=== PATIENT | female | born 1930 | race Caucasian/White ===

== ENCOUNTER 2016-07-16 19:55 | Emergency (ER) | payer OTHER ==
[~2016-07-16] VITALS: Ht 152.4 cm; Wt 65.8 kg
[~2016-07-16 19:55] MED LIST: AZOR 10 MG-40 M1 TAB PO; Aspirin PO; BUDESONIDE EC3 MG PO; BUDESONIDE3 MG PO; CENTRUM SILVER1 EAC3 PO; CHOLESTYRAM4 GM/9 GM PO; COLACE100 M1 PO; DELTASONE20 MG PO; DICYCLOMINE HCL10 M1 PO; DORZOLAMIDE-TIM10 ML OPH; ENTOCORT EC3 MG PO; HARD NAILS2500 MCG PO; IMODIUM 2 MG. CA2 MG PO; LEVOTHYROXINE50 MCG PO; LOVASTATIN40 MG PO; METOPROLOL SUC100 M2 PO; NYSTATIN PO; NYSTATIN100000 UNI PO; PERCOCET 5-3251 EACH PO; QUESTRAN4 GM/9 GM PO; TRAVATAN Z5 ML OPH; TYLENOL TAB 32325 MG PO; VALTREX1000 MG PO; XALATAN 0.50 GTT/1 B OPH
--- NOTE | 2016-07-16 20:25 | ED GI/GU/ABDOMINAL COMPLAINT ---
History of Present Illness General Chief Complaint: General Adult Stated Complaint: PT HAS A PAIN IN THE BACK AND IN THE STOMACH Source: patient Exam Limitations: no limitations Vital Signs & Intake/Output Vital Signs & Intake/Output Vital Signs Date Time Temp Pulse Resp B/P Pulse O2 O2 Flow FiO2 Ox Delivery Rate 07/16 2004 97.7 52 18 182/77 96 Room Air Allergies Coded Allergies: MUKESH Inhibitors (Severe, COUGH 06/23/16) lovastatin (Severe, DIARRHEA 06/23/16) amlodipine (From NORM) (DIARRHEA 06/23/16) olmesartan (From NORM) (DIARRHEA 06/23/16) Reconcile Medications Biotin (Hard Nails) 2,500 MCG CAPSULE 2 CAP PO DAILY SUPPLEMENT (Reported) Diclofenac Sodium (Voltaren) 1 % GEL..GRAM. 1 GM TOP 4 TIMES/DAY PAIN apply to affected area(s) Dicyclomine HCl 10 MG CAPSULE 1 CAP PO TID ABD CRAMPS (Reported) Docusate Sodium (Colace) 100 MG CAPSULE 1 CAP PO DAILY STOOL SOFTENER ( Reported) Dorzolamide HCl/Timolol Maleat (Dorzolamide-Timolol Eye Drops) 10 ML DROPS 1 GTT OPH BID BOTH EYES - GLAUCOMA (Reported) Levothyroxine Sodium 50 MCG TABLET 1 TAB PO DAILY THYROID (Reported) Metoprolol Succinate 100 MG TAB.ER.24H 1 TAB PO DAILY HEART/BP (Reported) Multivit-Min/FA/Lycopen/Lutein (Centrum Silver Tablet) 1 EACH TABLET 1 TAB PO DAILY SUPPLEMENT (Reported) Nystatin 100,000 UNIT/1 ML ORAL.SUSP 5 ML PO 4 TIMES/DAY thrush Oxycodone HCl/Acetaminophen (Percocet 5-325 MG Tablet) 5 MG-325 MG TABLET 1 TAB PO Q4-6 PRN PAIN Oxycodone HCl/Acetaminophen (Percocet 5-325 MG Tablet) 1 EACH TABLET 1 TAB PO Q4P PRN pain Prednisone (Deltasone) 20 MG TABLET 1 TAB PO BID SHINGLES Travoprost (Travatan Z) 5 ML DROPS 1 GTT OPH QPM BOTH EYES- GLAUCOMA ( Reported) Valacyclovir HCl (Valtrex) 1,000 MG TABLET 1 TAB PO TID shingles Triage Note: RECEIVED 86 YO FEMALE WITH HX OF SHINGLES, C/O SEVERE PAIN FROM BACK TO STOMACH AREA. PT WAS HERE TWICE FOR SAME. PRESCRIBED GABAPENTIN BY PMD BUT MADE HER CONFUSED. PT REPORTS 04/07 PAIN Triage Nurses Notes Reviewed? yes ? N Is pt currently ? No Onset: Gradual Duration: 2 MONTHS Timing: single episode today Quality/Severity: moderate Location: LEFT FLANK Radiation: LEFT CHEST Activities at Onset: ZOSTER INFECTION HPI: This is an 86-year-old who presents to the ER for the chief complaints of persistent left flank pain after herpes zoster infection. According to the daughter they started her on Neurontin for pain and ended up in the ER with a medication reaction and confusion. At that time they took her off Neurontin. Since that time she's been using Tylenol but without any relief. According to the daughter she is requesting some pain medications. No fever or chills. The pain is exactly the same as she has experienced since her episodes of zoster infection. Past History Travel History Traveled to [place] past 21 day No Medical History Any Pertinent Medical History? 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 Hx Contributory? No Review of Systems Review of Systems Constitutional: Denies: chills, fever. EENTM: Reports: no symptoms. Respiratory: Denies: cough, short of breath, sputum production. Cardiovascular: Denies: chest pain, palpitations. GI: Denies: abdominal pain. Genitourinary: Reports: no symptoms. Musculoskeletal: Reports: back pain. Skin: Reports: rash (healed over rash). Neurological/Psychological: Reports: anxiety. Hematologic/Endocrine: Denies: bruising, bleeding, polyuria, other. Immunologic/Allergic: Denies: splenectomy. All Other Systems: Reviewed and Negative Physical Exam Physical Exam General Appearance: well developed/nourished, alert, awake, anxious Head: atraumatic, normal appearance Eyes: Bilateral: normal appearance, PERRL, EOMI. Ears, Nose, Throat, Mouth: hearing grossly normal, moist mucous membrane Neck: normal inspection, supple, full range of motion Respiratory: normal breath sounds, chest non-tender, no respiratory distress Cardiovascular: regular rate/rhythm Peripheral Pulses: 2+ radial (R), 2+ radial (L) Gastrointestinal: normal bowel sounds, soft, non-tender Back: HYPERPIGMENTATION OVER PREVIOUS ZOSTER RASH Extremities: normal range of motion, evidence of injury Neurologic/Psych: no motor/sensory deficits, awake, alert, oriented x 3 Skin: intact, normal color, warm/dry Diagram Body Front & Back 1) HYPERPIGMENTED RASH Core Measures ACS in differential dx? 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 Initial ED EKG: none Departure Departure Time of Disposition: 2038 Disposition: HOME OR SELF CARE Condition: Stable Clinical Impression Primary Impression: Neuropathic pain Referrals: LITLTE DHALIWAL,TONNY Monroy (PCP/Family) Additional Instructions: TAKE THE PERCOCET AND VOLTAREN CREAM DIAGNOSED AND FOLLOW UP WITH YOUR DOCTOR IN THE OFFICE FOR CONTINUED PAIN. RETURN TO E ER NEEDED. Departure Forms: Customer Survey General Discharge Information Prescriptions: Current Visit Scripts Oxycodone HCl/Acetaminophen (Percocet 5-325 MG Tablet) 1 TAB PO Q4-6 PRN PAIN #10 TAB Diclofenac Sodium (Voltaren) 1 GM TOP 4 TIMES/DAY #1 TUBE apply to affected area(s)
[2016-07-16] MEDS ORDERED: PERCOCET 5-3251 EACH PO (20:41)
[2016-07-16] MEDS ORDERED: VOLTAREN100 GM TOP (20:41)
[2016-07-16 20:56] VITALS: BP 181/70
== END 2016-07-16 21:15 ==
LOC: ERH 19:55
DX: G62.9 Polyneuropathy, unspecified (principal)

== ENCOUNTER 2016-07-31 19:29 | Emergency (ER) | payer OTHER ==
[~2016-07-31] VITALS: Ht 154.9 cm; Wt 69.9 kg
[~2016-07-31 19:29] MED LIST changes: +VOLTAREN100 GM TOP
[2016-07-31] MEDS ORDERED: ASPIRIN EC81 M1 PO (20:51)
[2016-07-31] MEDS ORDERED: LEVOTHYROXINE75 MCG PO (20:52)
[2016-07-31] MEDS ORDERED: METOPROLOL SUCC50 M2 PO (20:53)
[2016-07-31] MEDS ORDERED: VITAMIN D250000 UNIT PO (20:55)
[2016-07-31] MEDS ORDERED: HYDROXYZINE HCL25 M2 PO (20:56)
--- NOTE | 2016-07-31 21:16 | RADIOLOGY REPORT ---
EXAMINATION: XR ABDOMEN MULTIPLE VIEWS CLINICAL INDICATION: Pericolostomy pain COMPARISON: 11/27/2015 TECHNIQUE: AP supine and upright radiographs of the abdomen and pelvis. FINDINGS: Unremarkable bowel gas pattern. No evidence of obstruction. No free intraperitoneal air. IMPRESSION: Unremarkable examination.
[2016-07-31] MEDS ORDERED: PERCOCET 5-3251 EACH PO (21:34)
--- NOTE | 2016-07-31 21:35 | ED GENERAL ADULT ---
History of Present Illness General Chief Complaint: General Adult Stated Complaint: PT IN THE LEFT SIDE Source: patient, family, old records Exam Limitations: no limitations Vital Signs & Intake/Output Vital Signs & Intake/Output Vital Signs Date Time Temp Pulse Resp B/P Pulse O2 O2 Flow FiO2 Ox Delivery Rate 07/31 2145 97.0 64 20 178/70 98 Room Air 07/31 1938 97.2 60 18 182/75 98 Room Air ED Intake and Output 08/01 0000 07/31 1200 Intake Total Output Total Balance Patient 154 lb Weight Allergies Coded Allergies: MUKESH Inhibitors (Severe, COUGH 06/23/16) lovastatin (Severe, DIARRHEA 06/23/16) amlodipine (From NORM) (DIARRHEA 06/23/16) olmesartan (From NORM) (DIARRHEA 06/23/16) Reconcile Medications Aspirin (Ecotrin*) 81 MG TABLET.DR 1 TAB PO DAILY HEART/BLOOD (Reported) Biotin (Hard Nails) 2,500 MCG CAPSULE 2 CAP PO DAILY SUPPLEMENT (Reported) Diclofenac Sodium (Voltaren) 1 % GEL..GRAM. 1 GM TOP 4 TIMES/DAY PAIN apply to affected area(s) Docusate Sodium (Colace) 100 MG CAPSULE 1 CAP PO DAILY STOOL SOFTENER ( Reported) Dorzolamide HCl/Timolol Maleat (Dorzolamide-Timolol Eye Drops) 10 ML DROPS 1 GTT OPH BID BOTH EYES - GLAUCOMA (Reported) Ergocalciferol (Vitamin D2) (Vitamin D2) 50,000 UNIT CAPSULE 1 CAP PO QSUN SUPPLEMENT (Reported) Hydroxyzine HCl 25 MG TABLET 1 TAB PO PRN ITCHING (Reported) Levothyroxine Sodium 75 MCG TABLET 1 TAB PO DAILY THYROID (Reported) Metoprolol Succinate 50 MG TAB.ER.24H 150 MG PO DAILY HEART/BP (Reported) Multivit-Min/FA/Lycopen/Lutein (Centrum Silver Tablet) 1 EACH TABLET 1 TAB PO DAILY SUPPLEMENT (Reported) Oxycodone HCl/Acetaminophen (Percocet 5-325 MG Tablet) 5 MG-325 MG TABLET 0.5- 1 TAB PO Q6P PRN severe pain Travoprost (Travatan Z) 5 ML DROPS 1 GTT OPH QPM BOTH EYES- GLAUCOMA ( Reported) Core Measure Meds Pre-Hospital aspirin Triage Note: 86 YEAR OLD FEMALE TO TRIAGE , STATES THAT SHE HAD SHINGLES ON 06/17/16, WAS SEEN AGAIN ON 06/21 DUE TO PAIN CONTINUES, PT NOTED WITH SCARS TO BACK AND 2 AREAS THAT LOOK LIKE THEY WERE OPEN, STATES THAT SHE CONTINUES WITH THE PAIN, WAS STARTED ON GABAPENTIN FOR THE PAIN BUT SHE STOPPED IT . STATES THAT THEY CALLED PMD AND THEY TOLD HER THERE IS NOTHING TO DO FOR IT BUT TAKE TYLENOL. PT ALSO COMPLAINS OF URINARY PROBLEMS , STATES THAT SHE HAS BEEN UNABLE TO GET TO THE BATHROOM FAST ENOUGH AND ENDS UP URINATING A LITTLE IN HER PANTS AND HAS INCREASED URINATION Triage Nurses Notes Reviewed? yes Onset: 6 weeks Duration: week(s):, constant, continues in ED Timing: recent history Injury Environment: home Severity: moderate No Modifying Factors: none Associated Symptoms: back pain LMP (ages 10-50): post menopausal : No Patient currently breastfeeds: No HPI: 6 weeks prior to admission patient was diagnosed with herpes zoster to the left lower back. She complains of continued pain no relief with Tylenol. Pain described as sharp moderate to severe radiating to the anterior abdomen near her colostomy constant. She denies fever chills nausea vomiting diarrhea chest pain cough shortness of breath headache dysuria bleeding. Past History Travel History Traveled to [place] past 21 day No Medical History Any Pertinent Medical History? 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 Hx Contributory? No Review of Systems Review of Systems Constitutional: Reports: no symptoms. EENTM: Reports: no symptoms. Respiratory: Reports: no symptoms. Cardiovascular: Reports: no symptoms. GI: Reports: no symptoms. Genitourinary: Reports: no symptoms. Musculoskeletal: Reports: see HPI, back pain. Skin: Reports: see HPI, rash. Neurological/Psychological: Reports: no symptoms. Hematologic/Endocrine: Reports: no symptoms. Immunologic/Allergic: Reports: no symptoms. All Other Systems: Reviewed and Negative Physical Exam Physical Exam General Appearance: well developed/nourished, alert, awake, anxious, mild distress, obese Head: atraumatic, normal appearance Eyes: Bilateral: normal appearance, PERRL, EOMI. Ears, Nose, Throat: normal pharynx, normal ENT inspection, hearing grossly normal Neck: normal inspection, supple, full range of motion, no midline tenderness Respiratory: normal breath sounds, chest non-tender, no respiratory distress, quiet respiration, lungs clear Cardiovascular: regular rate/rhythm, normal peripheral pulses, norml femoral pulses equa Peripheral Pulses: 4+ carotid (R), 4+ carotid (L) Gastrointestinal: normal bowel sounds, soft, non-tender, no organomegaly Back: herpes stigmata left flank Extremities: normal inspection, normal capillary refill, normal range of motion, no edema Neurologic/Psych: no motor/sensory deficits, awake, alert, oriented x 3, normal gait, normal mood/affect Reflexes: 2+: bicep (R), bicep (L). Skin: intact, rash Lymphatic: no anterior cervical chirag Core Measures ACS in differential dx? No CVA/TIA Diagnosis: No Severe Sepsis Present: No Septic Shock Present: No Progress Differential Diagnoses I considered the following diagnoses in my evaluation of the patient: Persistent herpetic neuralgia Plan of Care: Orders Procedure Date/time Status URINALYSIS 07/31 2023 Complete Laboratory Tests 07/31/162054: Urine Color YEL, Urine Clarity HAZY H, Urine pH 6.0, Ur Specific [place] <= 1.005, Urine Protein NEG, Urine Ketones NEG, Urine Nitrite NEG, Urine Bilirubin NEG, Urine Urobilinogen 0.2, Ur Leukocyte Esterase TRACE H, Ur Microscopic SEDIMENT EXAMINED, Urine WBC RARE, Ur Epithelial Cells RARE, Urine Hemoglobin TRACE-INTACT, Urine Glucose NEG Diagnostic Imaging: Viewed by Me: Radiology Read. Discussed w/RAD: Radiology Read. Radiology Impression: no acute abnormality Initial ED EKG: none Departure Departure Time of Disposition: 2130 Disposition: HOME OR SELF CARE Condition: Stable Clinical Impression Primary Impression: Post herpetic neuralgia Referrals: LITTLE DHALIWAL,TONNY Monroy (PCP/Family) Departure Forms: Customer Survey General Discharge Information Prescriptions: Current Visit Scripts Oxycodone HCl/Acetaminophen (Percocet 5-325 MG Tablet) 0.5-1 TAB PO Q6P PRN severe pain #20 TAB Critical Care Note Critical Care Note Critical Care Time: non-applicable
[2016-07-31 21:45] VITALS: BP 178/70
== END 2016-07-31 21:46 ==
LOC: ERH 19:29
DX: M79.2 Neuralgia and neuritis, unspecified (principal)
CPT/HCPCS: 74020; 81001